=== PATIENT | male | born 1990 | race Caucasian/White ===

== ENCOUNTER → 2018-06-10 | Outpatient (CLI) | payer BC ==
[2018-06-11 14:27] LABS: Pork IgE Class CLASS 0
[2018-06-11 14:29] LABS: Beef IgE <0.35 kU/L (<0.35); Beef IgE Class CLASS 0; Gluten IgE Class CLASS 0; Yeast Bakers/Brew IgE <0.35 kU/L (<0.35)
[2018-06-11 14:30] LABS: Chicken IgE Class CLASS 0
[2018-06-11 14:32] LABS: Chocolate IgE Class CLASS 0; Cow's Milk IgE Class CLASS 0; Egg White IgE <0.35 kU/L (<0.35); Peanut IgE <0.35 kU/L (<0.35); Potato IgE <0.35 kU/L (<0.35); Potato IgE Class CLASS 0; Soybean IgE <0.35 kU/L (<0.35)
[2018-06-11 14:33] LABS: Coffee IgE <0.35 kU/L (<0.35); Coffee IgE Class CLASS 0
[2018-06-14 01:02] LABS: Beef IgG 12.7 mcg/mL (< 2.0); Chicken Meat IgG <2.0 mcg/mL (< 2.0); Chocolate IgG 2.4 mcg/mL (< 2.0); Coffee IgG 2.9 mcg/mL (< 2.0); Pork IgG 5.2 mcg/mL (< 2.0)
[2018-06-14 01:03] LABS: Corn IgG 2.5 mcg/mL (< 2.0); Cow's Milk IgG 66.4 mcg/mL (< 2.0); Peanut IgG <2.0 mcg/mL (< 2.0); Potato IgG <2.0 mcg/mL (< 2.0); Soybean IgG <2.0 mcg/mL (< 2.0); Tomato IgG <2.0 mcg/mL (< 2.0); Wheat IgG 7.2 mcg/mL (< 2.0)
== END | disposition home or self-care (01) ==
LOC: LABWHC1 09:21
PROVIDERS: ATTEND Otolaryngology
DX: J30.89 Other allergic rhinitis (principal)
CPT/HCPCS: 36415; 86001; 86003